=== PATIENT | male | born 1945 | race Caucasian/White ===

== ENCOUNTER → 2018-03-02 | Outpatient (CLI) | payer MEDICARE ==
--- NOTE | 2018-03-12 21:20 | Pulmonary Function Test ---
DATE OF STUDY: March 02, 2018 PULMONARY FUNCTION TESTING SPIROMETRY: Spirometry demonstrates evidence of [id number] obstruction. FEV1 was 1.92 liters or 57% predicted and FVC was 3.02 liters or 65% predicted in setting of decreased FEV1 over FVC ratio. After bronchodilator administration, there was no statistically significant change in spirometry. Flow volume loop was unremarkable except for mildly excavated obstructive limb with normal inspiratory limb often seen in emphysema. LUNG VOLUMES: Lung volumes as measured by nitrogen washout method demonstrate no evidence of restriction with normal total lung capacity of 7.04 liters or 95% predicted. Decreased ERV suggests partial obesity effect. DIFFUSION CAPACITY: Diffusion capacity was severely decreased at 4.47 mL per mmHg per minute or 15% predicted. Unclear adequacy of this component of the test. Please see graphic for details. SUMMARY: Ahcdqsbf-vm-tbitsu obstruction. Severe decrease in diffusion other findings although diffusion component of this testing was limited. Clinical correlation is recommended as these test symptoms may be seen in emphysema, but decreased diffusion can sometimes also be seen in pulmonary vascular disorders or anemia as well. Job#: [id number]
== END ==
LOC: RESP 10:19
PROVIDERS: ATTEND Internal Medicine Critical Care Medicine
DX: R06.00 Dyspnea, unspecified (principal); J18.9 Pneumonia, unspecified organism; J30.9 Allergic rhinitis, unspecified; J47.9 Bronchiectasis, uncomplicated; J98.4 Other disorders of lung; J45.909 Unspecified asthma, uncomplicated; I50.9 Heart failure, unspecified; K21.9 Gastro-esophageal reflux disease without esophagitis; G47.33 Obstructive sleep apnea (adult) (pediatric)
CPT/HCPCS: 94060; 94727; 94729

== ENCOUNTER → 2018-07-21 | Outpatient (CLI) | payer MEDICARE ==
--- NOTE | 2018-07-21 11:54 | Diagnostic Imaging Report ---
EXAM: CT Chest WITHOUT contrast INDICATION: Bronchiectasis COMPARISON: None. TECHNIQUE: The Chest was scanned utilizing a multidetector helical scanner without the use of IV contrast. Coronal and sagittal reformations were obtained. IV CONTRAST: None COMPLICATIONS: None RADIATION DOSE: Total DLP: 1809 mGy*cm Estimated effective dose: (DLP x 0.015 x size factor) mSv CTDIvol has been reviewed. It is below the limits set by the Radiation Protocol Committee (RPC). Appropriate CT dose reduction techniques were utilized. FINDINGS: Lines and Tubes: Left chest wall ICD present with leads terminating right atrial appendage and right ventricular apex. Lower Neck: Within limitations of spray artifact, no acute findings. Visualized thyroid gland unremarkable. Heart and Great Vessels: The aorta and main pulmonary artery measure 36 and 32 mm. respectively. Trace pericardial fluid inferiorly statistically physiologic. Advanced coronary artery vascular calcifications and PCI changes poorly evaluated due to respiratory motion. Lymph Nodes: No significant mediastinal adenopathy by size criteria. Largest lymph node 8 mm left level 11. The hilar regions are sub-optimally evaluated given lack of IV contrast. Lungs: Trace pleural effusions present. There is mild biapical scarring with no pneumothorax. The trachea and central bronchi are unremarkable. Right: Right middle lobe is nearly completely collapsed with bronchial wall thickening and bronchiectasis consistent with right middle lobe syndrome. Scattered tree-in-bud opacities, bronchial wall thickening, and mild to moderate bronchiectasis present in the right upper lobe and right lower lobes with superimposed atelectasis in the right lung base. Granulomata present. Left: Tree-in-bud opacities, nodular densities, bronchial wall thickening, and minimal bronchiectasis in the left upper lobe present. Moderate bronchial wall thickening and moderate bronchiectasis with dense consolidation/bronchiectasis medial left lower lobe present. Superimposed nodular densities and volume loss are present. Upper abdomen: Gastric banding changes. Bones and Soft Tissues: Moderate degenerative changes. IMPRESSION: 1. Moderate bilateral tree-in-bud and other nodular densities with bronchial wall thickening and bronchiectasis in all 5 lobes most consistent with recurrent aspiration and/or infection. Given scattered nodularity and lack of comparisons, [address] follow-up recommended. 2. Right middle lobe syndrome. Findings of right middle lobe syndrome and above described findings can additionally be seen in the setting of atypical mycobacterial infection. Clinical/laboratory correlation recommended. 3. More dense consolidation and bronchiectasis of the medial left lower lobe likely sequela of chronic infection/aspiration. Superimposed acute infectious process difficult to exclude given lack of comparisons and lack of IV contrast. Correlation recommended. 4. Advanced coronary artery vascular calcifications. Signed by: Dr. Reed Sanders MD on 07/21/2018 11:51 AM
== END ==
LOC: CT 10:29
PROVIDERS: ATTEND Internal Medicine Critical Care Medicine
DX: J47.9 Bronchiectasis, uncomplicated (principal); R06.00 Dyspnea, unspecified; J30.9 Allergic rhinitis, unspecified; J45.909 Unspecified asthma, uncomplicated; I50.9 Heart failure, unspecified; K21.9 Gastro-esophageal reflux disease without esophagitis; G47.33 Obstructive sleep apnea (adult) (pediatric); J18.9 Pneumonia, unspecified organism
CPT/HCPCS: 71250